=== PATIENT | male | born 1940 | race Caucasian/White ===

== ENCOUNTER 2024-01-13 07:10 | Day surgery (SDC) | payer OTHER ==
[2024-01-12 16:11] LABS: BASOPHILS # (AUTO) 0.1 X10'3 (0-0.2); BASOPHILS % (AUTO) 0.9 % (0-1); EOSINOPHILS # (AUTO) 0.1 X10'3 (0-0.9); EOSINOPHILS % (AUTO) 1.6 % (0-6); HEMATOCRIT 41.7 % (42.0-52.0); HEMOGLOBIN 13.5 g/dl (14.0-17.9); LYMPHOCYTES # (AUTO) 1.4 X10'3 (1.1-4.8); LYMPHOCYTES % (AUTO) 22.8 % (21-51); MEAN CORPUSCULAR HEMOGLOBIN 31.3 PG (27.0-31.0); MEAN CORPUSCULAR HGB CONC 32.5 g/dL (33.0-36.5); MEAN CORPUSCULAR VOLUME 96.5 FL (78-98); MEAN PLATELET VOLUME 9.2 FL (7.4-10.4); MONOCYTES # (AUTO) 0.5 X10'3 (0-0.9); MONOCYTES % (AUTO) 8.7 % (2-12); NEUTROPHILS # (AUTO) 3.9 X10'3 (1.8-7.7); PLATELET COUNT 155 X10'3 (140-440); RED BLOOD COUNT 4.32 X10'6 (4.70-6.10); RED CELL DISTRIBUTION WIDTH 17.1 % (11.5-14.5)
[2024-01-12 16:28] LABS: ALBUMIN 3.9 G/DL (3.4-5.0); ANION GAP 9 (8-16); BLOOD UREA NITROGEN 24 MG/DL (7-18); BUN/CREATININE RATIO 20.5 (10.0-20.0); CHLORIDE 104 MMOL/L (99-107); CREATININE 1.17 MG/DL (0.60-1.10); GLUCOSE 94 MG/DL (70-104); POTASSIUM 4.3 MMOL/L (3.5-5.1); SODIUM 141 MMOL/L (135-145); TOTAL CARBON DIOXIDE 28.3 MMOL/L (24-32); eGFR 60 ML/MIN
[2024-01-12 16:32] LABS: INR 1.1 INR; PROTHROMBIN TIME 11.5 SECONDS (9.0-12.0)
[2024-01-13] VITALS (13 sets, daily range): BP systolic 90–147; BP diastolic 47–106; PULSE 39–96; RESP 9–16; TEMP 97.8; O2SAT 94–99
[~2024-01-13] VITALS: Ht 190.5 cm; Wt 77.6 kg
[2024-01-13] MEDS ORDERED: LORazepam 0.5 MG tablet PO ONE (07:25)
[2024-01-13] MEDS ORDERED: normal saline 1000ml 1,000 ML IV SCH (07:25)
[2024-01-13] MEDS ORDERED: amiodarone 150mg/dext, iso-os 100 ML IV PRN (07:40)
[2024-01-13] MEDS ORDERED: IRON18TA PO (07:42)
[2024-01-13] MEDS ORDERED: POTA-206 PO (07:42)
[2024-01-13] MEDS ORDERED: APIX5TAB3 PO (07:42)
[2024-01-13] MEDS ORDERED: CARV3.123 PO (07:42)
[2024-01-13] MEDS ORDERED: FURO20TA4 PO (07:42)
[2024-01-13] MEDS ORDERED: AMI200T PO (07:45)
[2024-01-13] MEDS ORDERED: EMPA10TA PO (07:45)
[2024-01-13] MEDS: morphine 10mg/ml inj. IV ONE (10:04)
[2024-01-13] MEDS: atropine 0.1mg/ml 10ml syringe IV ONE ×2 (10:04→11:08)
[2024-01-13] MEDS: MIDAZolam 1mg/ml 10ml vial IV ONE (10:05)
== END 2024-01-13 13:03 | disposition home or self-care (01) ==
LOC: SSTAY O 07:10
PROVIDERS: ATTEND Internal Medicine Cardiovascular Disease
DX: I48.19 Other persistent atrial fibrillation (principal); I48.92 Unspecified atrial flutter; I45.10 Unspecified right bundle-branch block; I49.3 Ventricular premature depolarization; I11.0 Hypertensive heart disease with heart failure; I50.21 Acute systolic (congestive) heart failure; E78.5 Hyperlipidemia, unspecified; I42.0 Dilated cardiomyopathy; Z79.01 Long term (current) use of anticoagulants; Z79.899 Other long term (current) drug therapy; Z90.49 Acquired absence of other specified parts of digestive tract; Z98.890 Other specified postprocedural states; Z80.9 Family history of malignant neoplasm, unspecified
CPT/HCPCS: 36415; 80048; 85025; 85610; 92960; 93005; J0461; J2250; J2274; J7030

== ENCOUNTER 2024-01-14 22:13 | Inpatient (IN) | payer OTHER, MEDICARE ==
[~2024-01-14] VITALS: Ht 190.5 cm; Wt 60.5 kg
[~2024-01-14 22:13] MED LIST: AMI200T PO; APIX5TAB3 PO; CARV3.123 PO; EMPA10TA PO; FURO20TA4 PO; IRON18TA PO; POTA-206 PO
[2024-01-14 22:49] LABS: HEMOGLOBIN 12.7 g/dl (14.0-17.9)
[2024-01-14 22:51] LABS: BASOPHILS % (AUTO) 0.7 % (0-1); EOSINOPHILS # (AUTO) 0.1 X10'3 (0-0.9); EOSINOPHILS % (AUTO) 1.2 % (0-6); HEMATOCRIT 38.7 % (42.0-52.0); LYMPHOCYTES # (AUTO) 2.1 X10'3 (1.1-4.8); LYMPHOCYTES % (AUTO) 30.8 % (21-51); MEAN CORPUSCULAR HEMOGLOBIN 31.7 PG (27.0-31.0); MEAN CORPUSCULAR HGB CONC 32.9 g/dL (33.0-36.5); MEAN CORPUSCULAR VOLUME 96.5 FL (78-98); MEAN PLATELET VOLUME 10.2 FL (7.4-10.4); MONOCYTES # (AUTO) 0.7 X10'3 (0-0.9); MONOCYTES % (AUTO) 11.1 % (2-12); NEUTROPHILS # (AUTO) 3.7 X10'3 (1.8-7.7); NEUTROPHILS % (AUTO) 56.2 % (42-75); PLATELET COUNT 143 X10'3 (140-440); RED BLOOD COUNT 4.01 X10'6 (4.70-6.10); RED CELL DISTRIBUTION WIDTH 17.3 % (11.5-14.5); WHITE BLOOD COUNT 6.7 X10'3 (4.5-11.0)
[2024-01-14 23:08] LABS: ALBUMIN 3.9 G/DL (3.4-5.0); ANION GAP 11 (8-16); BLOOD UREA NITROGEN 43 MG/DL (7-18); BUN/CREATININE RATIO 27.9 (10.0-20.0); CALCIUM 9.1 MG/DL (8.5-10.1); CHLORIDE 102 MMOL/L (99-107); CREATININE 1.54 MG/DL (0.60-1.10); GLUCOSE 108 MG/DL (70-104); POTASSIUM 4.4 MMOL/L (3.5-5.1); PRO BRAIN NATRIURETIC PEPTIDE 2606 PG/ML (0-450); SODIUM 139 MMOL/L (135-145); TOTAL CARBON DIOXIDE 26.1 MMOL/L (24-32); eCRCL 31 ML/MIN; eGFR 43 ML/MIN
[2024-01-15] VITALS (8 sets, daily range): BP systolic 114–153; BP diastolic 52–74; PULSE 38–61; RESP 14–18; TEMP 97.6–98.2; O2SAT 94–100
[2024-01-15] MEDS ORDERED: atropine 1 MG/1 ML vial IV ONE (00:25)
[2024-01-15] MEDS: atropine 0.1mg/ml 10ml syringe IV ONE (00:40)
[2024-01-15] MEDS ORDERED: magnesium 4gm in 100ml NS 100 ML IV PRN (01:00)
[2024-01-15] MEDS ORDERED: magnesium 2GM in 50ml NS 50 ML IV PRN (01:00)
[2024-01-15] MEDS ORDERED: ondansetron/PF 4mg/2ml inj IV PRN (01:00)
[2024-01-15] MEDS ORDERED: acetaminophen 325mg tablet PO PRN (01:00)
[2024-01-15] MEDS ORDERED: magnesium Cl slow-release 64mg tablet PO PRN (01:00)
[2024-01-15] MEDS ORDERED: potassium Cl 40MEQ/1/2NS 520ml 520 ML IV PRN (01:00)
[2024-01-15] MEDS ORDERED: morphine 2 MG/ML inj. syringe IV PRN ×2 (01:00)
[2024-01-15 03:09] LABS: ALANINE AMINOTRANSFERASE 75 U/L (12-78); ALBUMIN 3.2 G/DL (3.4-5.0); ALKALINE PHOSPHATASE 74 IU/L (46-116); ASPARTATE AMINO TRANSFERASE 46 U/L (10-37); BILIRUBIN,TOTAL 0.8 MG/DL (0.1-1.0); FREE T4 (FREE THYROXINE) 0.96 NG/DL (0.73-1.40); MAGNESIUM 2.2 MG/DL (1.5-2.4); POTASSIUM 4.2 MMOL/L (3.5-5.1); THYROID STIMULATING HORMONE 9.31 ulU/ml (0.34-4.50); TOTAL PROTEIN 6.4 G/DL (6.4-8.2)
[2024-01-15 03:10] LABS: BILIRUBIN,DIRECT 0.2 MG/DL (0-0.3)
[2024-01-15] MEDS: amiodarone 200mg tablet PO SCH (08:00)
[2024-01-15] MEDS: K and/or MAG REPLACEMENT MC SCH (08:00)
[2024-01-15] MEDS: furosemide 20MG tablet PO SCH (08:24)
[2024-01-15] MEDS: heparin, porcine 5000 units/ml vial SQ SCH (08:24)
[2024-01-15] MEDS: docusate sod 100mg capsule PO SCH (08:24)
[2024-01-15] MEDS: EMPAGLIFLOZIN 10 MG TABLET PO SCH (08:24)
[2024-01-15] MEDS: ferrous sulfate 325mg tablet PO SCH (08:24)
[2024-01-15] MEDS: apixaban 5mg tablet PO SCH (08:24)
[2024-01-15] MEDS ORDERED: ondansetron 4mg rapidly disintigrating tab PO PRN (11:45)
[2024-01-16] VITALS (8 sets, daily range): BP systolic 115–132; BP diastolic 55–69; PULSE 37–54; RESP 13–16; TEMP 97.5–98.5; O2SAT 94–97
[2024-01-16 06:09] LABS: ALANINE AMINOTRANSFERASE 60 U/L (12-78); ALBUMIN/GLOBULIN RATIO 0.9 (1.1-1.5); ALKALINE PHOSPHATASE 74 IU/L (46-116); ANION GAP 7 (8-16); ASPARTATE AMINO TRANSFERASE 28 U/L (10-37); BASOPHILS % (AUTO) 0.8 % (0-1); BILIRUBIN,TOTAL 0.5 MG/DL (0.1-1.0); BLOOD UREA NITROGEN 29 MG/DL (7-18); CALCIUM 8.5 MG/DL (8.5-10.1); CHLORIDE 108 MMOL/L (99-107); CREATININE 1.16 MG/DL (0.60-1.10); EOSINOPHILS # (AUTO) 0.1 X10'3 (0-0.9); GLUCOSE 87 MG/DL (70-104); HEMATOCRIT 35.8 % (42.0-52.0); HEMOGLOBIN 11.8 g/dl (14.0-17.9); LYMPHOCYTES # (AUTO) 2.1 X10'3 (1.1-4.8); LYMPHOCYTES % (AUTO) 34.7 % (21-51); MAGNESIUM 2.3 MG/DL (1.5-2.4); MEAN CORPUSCULAR HEMOGLOBIN 31.6 PG (27.0-31.0); MEAN CORPUSCULAR VOLUME 95.8 FL (78-98); MONOCYTES # (AUTO) 0.6 X10'3 (0-0.9); MONOCYTES % (AUTO) 10.6 % (2-12); NEUTROPHILS # (AUTO) 3.2 X10'3 (1.8-7.7); NEUTROPHILS % (AUTO) 51.9 % (42-75); PLATELET COUNT 132 X10'3 (140-440); POTASSIUM 3.8 MMOL/L (3.5-5.1); RED BLOOD COUNT 3.73 X10'6 (4.70-6.10); RED CELL DISTRIBUTION WIDTH 16.6 % (11.5-14.5); SODIUM 144 MMOL/L (135-145); TOTAL CARBON DIOXIDE 29.3 MMOL/L (24-32); TOTAL PROTEIN 6.3 G/DL (6.4-8.2); WHITE BLOOD COUNT 6.1 X10'3 (4.5-11.0); eCRCL 41 ML/MIN; eGFR 60 ML/MIN
[2024-01-16] MEDS: amiodarone 100mg tablet PO SCH (07:41)
[2024-01-16] MEDS ORDERED: atropine 1 MG/1 ML vial IV ONE (10:35)
[2024-01-16] MEDS: atropine 0.1mg/ml 10ml syringe IV ONE (11:32)
[2024-01-16] MEDS: midodrine 5mg tablet PO ONE (11:32)
[2024-01-16] MEDS: fludrocortisone acetate 0.1mg tablet PO SCH (11:32)
[2024-01-17] VITALS (8 sets, daily range): BP systolic 94–140; BP diastolic 41–77; PULSE 38–73; RESP 9–18; TEMP 97.7–98.9; O2SAT 94–97
[2024-01-17 06:33] LABS: BASOPHILS # (AUTO) 0.1 X10'3 (0-0.2); BASOPHILS % (AUTO) 0.8 % (0-1); EOSINOPHILS # (AUTO) 0.1 X10'3 (0-0.9); EOSINOPHILS % (AUTO) 1.7 % (0-6); HEMATOCRIT 35.2 % (42.0-52.0); HEMOGLOBIN 11.6 g/dl (14.0-17.9); LYMPHOCYTES # (AUTO) 1.9 X10'3 (1.1-4.8); LYMPHOCYTES % (AUTO) 27.7 % (21-51); MEAN CORPUSCULAR HEMOGLOBIN 31.8 PG (27.0-31.0); MEAN CORPUSCULAR VOLUME 96.4 FL (78-98); MEAN PLATELET VOLUME 10.1 FL (7.4-10.4); MONOCYTES # (AUTO) 0.8 X10'3 (0-0.9); MONOCYTES % (AUTO) 11.8 % (2-12); NEUTROPHILS # (AUTO) 3.9 X10'3 (1.8-7.7); PLATELET COUNT 127 X10'3 (140-440); RED BLOOD COUNT 3.65 X10'6 (4.70-6.10); RED CELL DISTRIBUTION WIDTH 16.7 % (11.5-14.5); WHITE BLOOD COUNT 6.8 X10'3 (4.5-11.0)
[2024-01-17 06:47] LABS: ALANINE AMINOTRANSFERASE 40 U/L (12-78); ALBUMIN 2.9 G/DL (3.4-5.0); ALBUMIN/GLOBULIN RATIO 0.9 (1.1-1.5); ALKALINE PHOSPHATASE 67 IU/L (46-116); ANION GAP 7 (8-16); ASPARTATE AMINO TRANSFERASE 16 U/L (10-37); BILIRUBIN,TOTAL 0.5 MG/DL (0.1-1.0); BLOOD UREA NITROGEN 26 MG/DL (7-18); BUN/CREATININE RATIO 22.8 (10.0-20.0); CALCIUM 8.2 MG/DL (8.5-10.1); CHLORIDE 106 MMOL/L (99-107); CREATININE 1.14 MG/DL (0.60-1.10); GLUCOSE 82 MG/DL (70-104); MAGNESIUM 2.3 MG/DL (1.5-2.4); POTASSIUM 3.5 MMOL/L (3.5-5.1); SODIUM 142 MMOL/L (135-145); TOTAL CARBON DIOXIDE 28.7 MMOL/L (24-32); TOTAL PROTEIN 6.2 G/DL (6.4-8.2); eCRCL 42 ML/MIN; eGFR 61 ML/MIN
[2024-01-18] VITALS (16 sets, daily range): BP systolic 105–146; BP diastolic 45–83; PULSE 42–60; RESP 10–20; TEMP 97.7–98.9; O2SAT 93–97
[2024-01-18 07:02] LABS: BASOPHILS % (AUTO) 0.7 % (0-1); EOSINOPHILS # (AUTO) 0.1 X10'3 (0-0.9); EOSINOPHILS % (AUTO) 1.5 % (0-6); HEMATOCRIT 36.2 % (42.0-52.0); LYMPHOCYTES # (AUTO) 1.5 X10'3 (1.1-4.8); LYMPHOCYTES % (AUTO) 26.9 % (21-51); MEAN CORPUSCULAR HEMOGLOBIN 31.8 PG (27.0-31.0); MEAN CORPUSCULAR HGB CONC 33.1 g/dL (33.0-36.5); MEAN CORPUSCULAR VOLUME 95.9 FL (78-98); MEAN PLATELET VOLUME 9.8 FL (7.4-10.4); MONOCYTES # (AUTO) 0.6 X10'3 (0-0.9); MONOCYTES % (AUTO) 11.2 % (2-12); NEUTROPHILS # (AUTO) 3.4 X10'3 (1.8-7.7); NEUTROPHILS % (AUTO) 59.7 % (42-75); PLATELET COUNT 127 X10'3 (140-440); RED BLOOD COUNT 3.78 X10'6 (4.70-6.10); RED CELL DISTRIBUTION WIDTH 16.6 % (11.5-14.5); WHITE BLOOD COUNT 5.6 X10'3 (4.5-11.0)
[2024-01-18 07:30] LABS: ALANINE AMINOTRANSFERASE 41 U/L (12-78); ALBUMIN/GLOBULIN RATIO 0.9 (1.1-1.5); ALKALINE PHOSPHATASE 68 IU/L (46-116); ANION GAP 5 (8-16); ASPARTATE AMINO TRANSFERASE 20 U/L (10-37); BILIRUBIN,TOTAL 0.8 MG/DL (0.1-1.0); BLOOD UREA NITROGEN 19 MG/DL (7-18); BUN/CREATININE RATIO 18.4 (10.0-20.0); CALCIUM 8.2 MG/DL (8.5-10.1); CHLORIDE 108 MMOL/L (99-107); CREATININE 1.03 MG/DL (0.60-1.10); GLUCOSE 80 MG/DL (70-104); MAGNESIUM 2.1 MG/DL (1.5-2.4); POTASSIUM 3.3 MMOL/L (3.5-5.1); SODIUM 143 MMOL/L (135-145); TOTAL CARBON DIOXIDE 29.9 MMOL/L (24-32); TOTAL PROTEIN 6.3 G/DL (6.4-8.2); eCRCL 47 ML/MIN; eGFR 69 ML/MIN
[2024-01-18] MEDS ORDERED: potassium Cl 40MEQ/1/2NS 520ml 520 ML IV PRN (08:55)
[2024-01-18] MEDS ORDERED: potassium Cl 20 mEq SR tablet PO PRN (08:55)
[2024-01-18] MEDS ORDERED: LIDOcaine 1% w/EPI 1:100,000 inj. MDV 50 ML VIAL ONE (11:26)
[2024-01-18] MEDS ORDERED: fentaNYL/PF 50MCG/1 ML 2ML syringe ONE (11:27)
[2024-01-18] MEDS ORDERED: iohexol 350 MG/ML 50ML vial IV ONE (11:27)
[2024-01-18] MEDS ORDERED: ceFAZolin 1000mg inj ONE ×2 (11:27→11:31)
[2024-01-18] MEDS ORDERED: midazolam 1 mg/ML 2ml injection ONE (11:27)
[2024-01-18] MEDS ORDERED: HYDROcodone/acetaminophen 10/325mg tab PO PRN (14:55)
[2024-01-18] MEDS: HYDROcodone/acetaminophen 5mg/325mg tablet PO PRN (15:46)
[2024-01-18] MEDS: potassium Cl 20 mEq SR tablet PO PRN (15:52)
[2024-01-18] MEDS: vancomycin/NS 1 GM ADD-VANTAGE 250 ML X 1 DOSE IV ONE (15:56)
[2024-01-18] MEDS: K and/or MAG REPLACEMENT MC SCH (20:00)
[2024-01-19 02:00] VITALS: BP 130/77; PULSE 60; RESP 16; TEMP 97.9; O2SAT 95
[2024-01-19 06:00] VITALS: BP 116/63; PULSE 60; RESP 16; TEMP 97.2; O2SAT 94
[2024-01-19 07:09] LABS: BASOPHILS % (AUTO) 0.6 % (0-1); EOSINOPHILS # (AUTO) 0.1 X10'3 (0-0.9); EOSINOPHILS % (AUTO) 0.9 % (0-6); HEMATOCRIT 39.4 % (42.0-52.0); HEMOGLOBIN 13.1 g/dl (14.0-17.9); LYMPHOCYTES # (AUTO) 0.9 X10'3 (1.1-4.8); MEAN CORPUSCULAR HGB CONC 33.4 g/dL (33.0-36.5); MEAN CORPUSCULAR VOLUME 95.8 FL (78-98); MEAN PLATELET VOLUME 9.5 FL (7.4-10.4); MONOCYTES # (AUTO) 0.7 X10'3 (0-0.9); MONOCYTES % (AUTO) 10.5 % (2-12); NEUTROPHILS # (AUTO) 5.1 X10'3 (1.8-7.7); PLATELET COUNT 131 X10'3 (140-440); RED BLOOD COUNT 4.11 X10'6 (4.70-6.10); RED CELL DISTRIBUTION WIDTH 16.4 % (11.5-14.5); WHITE BLOOD COUNT 6.9 X10'3 (4.5-11.0)
[2024-01-19 07:24] LABS: ALANINE AMINOTRANSFERASE 37 U/L (12-78); ALBUMIN/GLOBULIN RATIO 0.8 (1.1-1.5); ALKALINE PHOSPHATASE 77 IU/L (46-116); ANION GAP 4 (8-16); ASPARTATE AMINO TRANSFERASE 32 U/L (10-37); BILIRUBIN,TOTAL 0.9 MG/DL (0.1-1.0); BLOOD UREA NITROGEN 18 MG/DL (7-18); BUN/CREATININE RATIO 21.4 (10.0-20.0); CALCIUM 8.1 MG/DL (8.5-10.1); CHLORIDE 106 MMOL/L (99-107); CREATININE 0.84 MG/DL (0.60-1.10); GLUCOSE 94 MG/DL (70-104); MAGNESIUM 1.9 MG/DL (1.5-2.4); POTASSIUM 3.8 MMOL/L (3.5-5.1); SODIUM 138 MMOL/L (135-145); TOTAL CARBON DIOXIDE 27.9 MMOL/L (24-32); TOTAL PROTEIN 6.6 G/DL (6.4-8.2); eCRCL 57 ML/MIN; eGFR 87 ML/MIN
[2024-01-19 08:00] VITALS: RESP 13; O2SAT 94
[2024-01-19 10:00] VITALS: BP 105/59; PULSE 60; RESP 18; TEMP 98.5; O2SAT 95
[2024-01-19] MEDS ORDERED: APIX5TAB3 PO (10:00)
[2024-01-19 12:50] VITALS: RESP 12
== END 2024-01-19 14:51 | disposition home or self-care (01) | DRG 276 ==
LOC: ER 22:14 → ED HOLD 01-15 01:08 → PCU 3S 01-15 04:40
PROVIDERS: ADMIT Surgery Surgical Critical Care; ATTEND Internal Medicine
PROC: 0JH608Z Insertion of Defibrillator Generator into Chest Subcutaneous Tissue and Fascia, Open Approach (ICD-10-PCS; principal; 2024-01-18)
PROC: 02H63KZ Insertion of Defibrillator Lead into Right Atrium, Percutaneous Approach (ICD-10-PCS; 2024-01-18)
PROC: 02HK3KZ Insertion of Defibrillator Lead into Right Ventricle, Percutaneous Approach (ICD-10-PCS; 2024-01-18)
DX: I49.5 Sick sinus syndrome (principal); N17.0 Acute kidney failure with tubular necrosis; I50.22 Chronic systolic (congestive) heart failure; I13.0 Hypertensive heart and chronic kidney disease with heart failure and stage 1 through stage 4 chronic kidney disease, or unspecified chronic kidney disease; N18.30 Chronic kidney disease, stage 3 unspecified; E86.0 Dehydration; I42.0 Dilated cardiomyopathy; D50.9 Iron deficiency anemia, unspecified; R73.03 Prediabetes; E78.5 Hyperlipidemia, unspecified; I48.0 Paroxysmal atrial fibrillation; Z79.01 Long term (current) use of anticoagulants; Z79.899 Other long term (current) drug therapy; Z90.49 Acquired absence of other specified parts of digestive tract; Z79.84 Long term (current) use of oral hypoglycemic drugs
CPT/HCPCS: 33249; 36415; 71045; 80048; 80053; 80076; 83735; 83880; 84132; 84439; 84443; 84484; 85025; 87081; 93005; 93306; 96374; 97116; 97161; 97530; 99152; 99153; 99291; A4565; A6212; A6449; C1721; C1895; C1898; G0378; J0461; J0690; J1644; J2250; J3010; J3370; J3490; J7030; Q9967

== ENCOUNTER 2024-02-04 18:40 | Emergency (ER) | payer OTHER, MEDICARE ==
[~2024-02-04] VITALS: Ht 190.5 cm; Wt 72.7 kg
[~2024-02-04 18:40] MED LIST changes: -AMI200T PO; -CARV3.123 PO
[2024-02-04 20:41] LABS: CLARITY,URINE TURBID (Clear); COLOR,URINE BROWN (Yellow)
[2024-02-04 20:55] LABS: UA COLLECTION TYPE CLN CATCH MIDSTREAM
[2024-02-04 20:59] LABS: SQUAMOUS EPITHELIAL CELL,UR FEW /LPF (FEW)
[2024-02-04 21:00] LABS: RBC,URINE TNTC /HPF (0-2); WBC,URINE 20-30 /HPF (0-4)
[2024-02-04 21:01] LABS: BACTERIA,URINE 2+ /HPF (Neg)
[2024-02-04 21:05] LABS: ALBUMIN 3.4 G/DL (3.4-5.0); ANION GAP 10 (8-16); BLOOD UREA NITROGEN 33 MG/DL (7-18); BUN/CREATININE RATIO 26.6 (10.0-20.0); CALCIUM 9.2 MG/DL (8.5-10.1); CHLORIDE 103 MMOL/L (99-107); CREATININE 1.24 MG/DL (0.60-1.10); GLUCOSE 105 MG/DL (70-104); POTASSIUM 4.2 MMOL/L (3.5-5.1); SODIUM 140 MMOL/L (135-145); TOTAL CARBON DIOXIDE 27.5 MMOL/L (24-32); eCRCL 46 ML/MIN; eGFR 56 ML/MIN
[2024-02-04 21:24] LABS: BASOPHILS # (AUTO) 0.1 X10'3 (0-0.2); BASOPHILS % (AUTO) 0.9 % (0-1); EOSINOPHILS # (AUTO) 0.1 X10'3 (0-0.9); EOSINOPHILS % (AUTO) 1.9 % (0-6); HEMATOCRIT 37.8 % (42.0-52.0); HEMOGLOBIN 12.4 g/dl (14.0-17.9); MEAN CORPUSCULAR HEMOGLOBIN 31.9 PG (27.0-31.0); MEAN CORPUSCULAR HGB CONC 32.9 g/dL (33.0-36.5); MEAN PLATELET VOLUME 9.2 FL (7.4-10.4); MONOCYTES # (AUTO) 0.8 X10'3 (0-0.9); MONOCYTES % (AUTO) 12.3 % (2-12); NEUTROPHILS # (AUTO) 3.8 X10'3 (1.8-7.7); NEUTROPHILS % (AUTO) 55.9 % (42-75); PLATELET COUNT 247 X10'3 (140-440); RED BLOOD COUNT 3.89 X10'6 (4.70-6.10); RED CELL DISTRIBUTION WIDTH 16.4 % (11.5-14.5); WHITE BLOOD COUNT 6.8 X10'3 (4.5-11.0)
[2024-02-04] MEDS ORDERED: NITR100C6 PO (21:30)
[2024-02-04 21:43] VITALS: BP 138/80; PULSE 62; RESP 16; TEMP 98.4; O2SAT 98
== END 2024-02-04 21:45 | disposition home or self-care (01) ==
LOC: ER 18:41
DX: R31.9 Hematuria, unspecified (principal); I48.91 Unspecified atrial fibrillation; Z79.899 Other long term (current) drug therapy
CPT/HCPCS: 36415; 80048; 81001; 85025; 87077; 87088; 87186; 99284